=== PATIENT | female | born 1985 | race Caucasian/White ===

== ENCOUNTER 2016-07-22 16:44 | Inpatient (IN) | payer MEDICAID ==
[~2016-07-22] VITALS: Ht 160 cm; Wt 74.4 kg
[2016-07-22] MEDS ORDERED: FERR325C PO (16:49)
[2016-07-22] MEDS ORDERED: PREN1TAB17 PO (16:49)
[2016-07-22 16:53] VITALS: Ht 160 cm; Wt 74.4 kg
[2016-07-22 16:54] VITALS: BP 139/81; RESP 16
[2016-07-22] MEDS ORDERED: LACTATED RINGER'S 1,000 ML IV ONE (17:30)
[2016-07-22] MEDS ORDERED: TERBUTALINE 1 MG/ML INJ SC ONE (17:30)
--- NOTE | 2016-07-22 17:57 | RADRPT ---
PROCEDURE: Limited obstetric ultrasound CLINICAL INDICATION: LABOR TECHNIQUE: Multiple transverse and longitudinal grayscale images of the pelvis were obtained tucker sabdominally and endovaginally.. COMPARISON: same day FINDINGS: There is a single live intrauterine gestation in a vertex position with a heart rate of 126 bp m. The cervix is closed and measures 3.0 cm in length. The placenta is posterior fundal in location. There is no evidence of a placental abruption or plac enta previa. RPTAT: AA IMPRESSION: The cervix is closed and measures 3.0 cm in length. Physician Mag Date Time Electronically viewed and signed by Tanvir Garcia Physician on 07/22/2016 17:56 /
[2016-07-22] MEDS ORDERED: MAGNESIUM SULFATE 4 GM/100 ML 100 ML IV ONE (20:00)
[2016-07-22] MEDS: LACTATED RINGER'S 1,000 ML IV SCH (20:11)
[2016-07-22] MEDS: BETAMET NA PHOS/AC(6 MG/ML) 5ML INJ IM SCH (20:40)
[2016-07-22 20:52] LABS: ADD UMIC YES; URINE BILIRUBIN (Dip) NEGATIVE (NEGATIVE); URINE BLOOD (Dip) NEGATIVE (NEGATIVE); URINE COLOR LT. YELLOW (YELLOW); URINE GLUCOSE (Dip) NEGATIVE (NEGATIVE); URINE KETONES (Dip) NEGATIVE (NEGATIVE); URINE LEUKOCYTE ESTERASE (Dip) 2+ (NEGATIVE); URINE NITRITE (Dip) NEGATIVE (NEGATIVE); URINE TOTAL PROTEIN (Dip) NEGATIVE (NEGATIVE); URINE UROBILINOGEN (Dip) 0.2 E.U./dL (0.1-1.0)
[2016-07-22 21:09] LABS: URINE RBCS NONE SEEN /HPF (0)
[2016-07-22 21:10] LABS: BACTERIA,URINE MODERATE; SQUAMOUS EPITHELIAL CELL,UR MANY
[2016-07-22] MEDS: MAGNESIUM SULFATE 20 GM/500 ML 500 ML IV SCH (21:11)
[2016-07-22 21:35] LABS: ADD SCAN DIFF NO
[2016-07-22 21:36] LABS: BASOPHILS % 0.4 % (0.0-2.0); EOSINOPHILS # 0.1 10^3/ul (0.0-0.5); EOSINOPHILS % 0.7 % (0.0-7.0); HEMATOCRIT 32.4 % (37.0-47.0); HEMOGLOBIN 11.1 g/dl (12.0-16.0); LYMPHOCYTES # 1.6 10^3/ul (0.8-2.9); LYMPHOCYTES % 14.8 % (15.0-51.0); MEAN CORPUSCULAR HEMOGLOBIN 32.7 pg (29.0-33.0); MEAN CORPUSCULAR HGB CONC 34.3 g/dl (32.0-37.0); MEAN CORPUSCULAR VOLUME 95.6 fl (82.0-101.0); MEAN PLATELET VOLUME 10.4 fl (7.4-10.4); MONOCYTE # 0.5 10^3/ul (0.3-0.9); MONOCYTES % 4.7 % (0.0-11.0); NEUTROPHIL # 8.4 10^3/ul (1.6-7.5); NEUTROPHILS % 78.2 % (39.0-77.0); PLATELET COUNT 252 10^3/UL (140-415); RED BLOOD COUNT 3.39 10^6/ul (4.20-5.40); RED CELL DISTRIBUTION WIDTH 13.2 % (11.5-14.5); WHITE BLOOD COUNT 10.7 10^3/ul (4.8-10.8)
[2016-07-22 21:49] LABS: INR 0.93; PROTIME 12.5 Sec (12.2-14.2)
[2016-07-22 21:54] LABS: PARTIAL THROMBOPLASTIN TIME 25.7 Sec (25.0-35.0)
[2016-07-22 21:55] LABS: ALBUMIN 3.7 g/dl (3.3-4.9); ALBUMIN/GLOBULIN RATIO 1.32; BILIRUBIN,INDIRECT 0.1 mg/dl (0-1.1); BILIRUBIN,TOTAL 0.1 mg/dl (0.2-1.3); CALCIUM 8.2 mg/dl (8.4-10.2); CREATININE 0.61 mg/dl (0.44-1.00); POTASSIUM 3.5 mmol/L (3.5-5.1); TOTAL PROTEIN 6.5 g/dl (6.1-8.1); URIC ACID 4.9 mg/dl (3.1-7.9)
[2016-07-23] MEDS ORDERED: SYN15 PO (03:57)
[2016-07-23] MEDS ORDERED: [UNRECOGNIZED DRUG - OTHER] INH PRN (04:30)
[2016-07-23] MEDS: LACTATED RINGER'S 1,000 ML IV SCH ×3 (06:54→21:16)
[2016-07-23] MEDS: MAGNESIUM SULFATE 20 GM/500 ML 500 ML IV SCH ×2 (06:55→16:45)
[2016-07-23] MEDS: FERROUS SULFATE (EC) 325 MG TAB PO SCH (08:43)
[2016-07-23] MEDS: DOCUSATE SODIUM 100 MG CAP PO SCH (08:43)
[2016-07-23] MEDS: ACETAMINOPHEN 325 MG TAB PO PRN ×2 (11:41→16:42)
--- NOTE | 2016-07-23 13:11 | PERINOTE ---
Date/Time of Note Date/Time of Note DATE: 07/23/16 TIME: 13:00 Assessment/Recommendations Other Assessments 1. IUP at 34 weeks GA 2. Episode of elevated BP. "PIH labs" are negative (24 hour urine for protein is pending). 3. UCs with positive FFN. No UCs at present 4. History of thyroid cancer with past radioactive iodine use. This would not be expected to be a risk for the current . Recommendations: Would await 24 hour urine result and second dose of betamethasone. After these are completed, would discontinue magnesium and discharge patient Would follow TSH monthly, as thyroid replacement needs may change in Would consider ultrasound for EFW if not done in the past 4 weeks given the risk of IUGR with possible preeclampsia. OB Subjective Free Text/Dictaton Patient was referred to the hospital for an audible FHT deceleration in the office. On admission her BP was somewhat elevated and the FFN was positive, indicating an increased risk for delivery. She was admitted for magnesium and betamethasone. Past medical history: the patient has a history of thyroid cancer, treated with thyroidectomy. In 2010 she had a course of radioactive iodine. HD# 2 IUP @ 34 weeks Complaints/Overnight events Patient reports no symptoms, no further UCs. BPs are now in the normal range. Current Medications Current Medications Magnesium Sulfate (Magnesium Sulfate 20 Gm/500 ml) 500 ml @ 50 mls/hr Q10H IV Last administered on 07/23/16 06:55; Admin Dose 50 MLS/HR; Start 07/22/16 at 20: 30 Betamethasone Acet/Betameth SodPhos (Celestone Soluspan) 12 mg Q24H IM Last administered on 07/22/16 20:40; Admin Dose 12 MG; Start 07/22/16 at 20:00; Stop 07/23/16 at 20:01 Ferrous Sulfate (Ferrous Sulfate (Ec)) 325 mg DAILY PO Last administered on 07/23 08:43; Admin Dose 325 MG; Start 07/23/16 at 09:00 Docusate Sodium (Colace) 100 mg DAILY PO Last administered on 07/23/16 08:43; Admin Dose 100 MG; Start 07/23/16 at 09:00 Acetaminophen 650 mg 650 mg Q4H PRN PO PAIN AND OR ELEVATED TEMP Last administered on 07/23/16 11:41; Admin Dose 650 MG; Start 07/22/16 at 20:00 Lactated Ringer's (Lr) 1,000 ml @ 125 mls/hr Q8H IV Last administered on 06:54; Admin Dose 125 MLS/HR; Start 07/22/16 at 20:01 Patient Own Medication 1-2 PUFFS Q4-6HRS PRN INH SHORTNESS OF BREATH; Start 07/23 at 04:30 Past Medical History Medical History: hypothyroid, other (Asthma due to ingestion of gluten. Thyroid cancer) Surgical History: other (Thyroidectomy) Para: 0 : 1 LMP (Females 10-50): Family History Significant Family History: hypertension Social History Smoker: non-smoker Alcohol: none Drugs: none OB Admission Exam Physical Exam Vitals: Vital Signs Date Time Temp Pulse Resp B/P Pulse Ox O2 Delivery O2 Flow Rate FiO2 07/22/16 16:54 98.3 16 139/81 Room Air Heart: Rhythm Normal Lungs: Clear Abdomen: WNL Extremities: Normal Reflexes: Normal (Reflexes are brisk, with one beat of ankle clonus. This could be in the normal range.) Heart Rate: 120's (115bpm) Accelerations: Accelerations Present Decelerations: No Decelerations Varibility: Moderate Contractions on Admission: None Last 72 hours Lab Results CBC & BMP 07/22/16 21:28 Liver Function Test 07/22/16 21:28 Alanine Aminotransferase (ALT/SGPT) 37 Albumin 3.7 Alkaline Phosphatase 120 Aspartate Amino Transf (AST/SGOT) 26 Direct Bilirubin 0.00 Total Protein 6.5 Magnesium Level Test 07/23/16 06:13 Magnesium Level 5.9 *H OMARI RICHARD MD Jul 23, 2016 13:11
--- NOTE | 2016-07-23 14:16 | NSTRPT ---
NST Information Datetime Report Generated by CPN: 07/23/2016 14:16 Datetime: 07/22/2016 15:20 NST Information EGA: 33.6 Datetime: 07/22/2016 15:12 Test Number: 1 Time on Monitor: 07/22/2016 15:42 Time off Monitor: 07/22/2016 16:02 NST Duration (Min): 20 Reason for NST: Chronic Hypertension; labor; Other Reason for NST Other: Hypothyroidism Test and Monitor Explained: Monitor Explained; Test Explained; Verbalized Understanding Pulse: 89 Resp: 16 SBP: 124 DBP: 64 Test Evaluation NST Interventions: Reposition Patient (Annotations: Data stored by [facility] on behalf of user) Patient States Movement: Present Contraction Frequency: x4(4/10) FHR Baseline : 130 Variability: Moderate 6-25bpm Accelerations: 15X15 Decelerations: Late FHR Category: Category II NST Results: Questionable Comments: pt to u/s, SAUNDRA 12.8cm, cephalic BPP [address] Hathaway at 1602. Report given to Dr. Christy, New orders rece ived. Pt to OB-TRG. Explained to Pt plan of care. follow up NST appointment given. kick count instructions reviewed. pt states understanding. 1615- Pt to OB-TRG as ordered. (Annotations: Data stored by N on behalf of user) Electronically Signed By E-Signature: with User ID: [id number]
[2016-07-23] MEDS ORDERED: CEFAZOLIN 1 GM/50 ML (PMX) 50 ML IVPB SCH (20:00)
[2016-07-23] MEDS: BETAMET NA PHOS/AC(6 MG/ML) 5ML INJ IM SCH (20:19)
--- NOTE | 2016-07-23 21:00 | RADRPT ---
PROCEDURE: US OB biophysical profile. CLINICAL INDICATION: decreased movements, PTL TECHNIQUE: Multiple sonographic images of the pelvis were obtained. The images were reviewed on a PACS workstation. COMPARISON: 07/22/16 FINDINGS: There is a single viable intrauterine gestation. Cardiac activity is present with 120 beats per min [place]. There is a vertex presentation. The placenta is posterior. There is no evidence of placental abruption. There is a normal amount of amniotic fluid with an SAUNDRA = 10.6 cm. Biophysical profile: movement 2/2 tone 2/2. breathing 2/2 SAUNDRA 2/2 Total 09/28 RPTAT: AA . IMPRESSION: Normal biophysical profile. . .Frank Lucas MD, MD Date Time Electronically viewed and signed by .Frank Lucas MD, MD on 07/23/2016 21:00 .S/
--- NOTE | 2016-07-23 21:06 | RADRPT ---
PROCEDURE: US OB. CLINICAL INDICATION: Size and dates , labor TECHNIQUE: Multiple sonographic images of the pelvis and gravid uterus were obtained. The images were reviewed on a PACS workstation. COMPARISON: 07/22/16 FINDINGS: There is a single viable intrauterine gestation. Cardiac activity is present with 123 beats per min peggy. There is a vertex presentation. The placenta is posterior. There is no evidence for an abruption or placenta previa. There is a normal amount of amniotic fluid with an SAUNDRA = 10.6 cm. Measurements were made in order to determine age. The results are as follows: BPD =8.3 cm HC =30.2 cm AC =30.1 cm FL =6.2 cm Estimated gestational age of approximately 33 weeks and 2 days based on ultrasound measurements. Clinical age: 34 weeks and 0 days. The estimated date of delivery is 09/08/2016, based on ultrasound measurements. The EFW = 2187 g, 26%, based on LMP age. RPTAT: AA IMPRESSION: Single viable intrauterine gestation of approximately 33 weeks and 2 days based on ultrasound measu rements. .Frank Lucas MD, Date Time Electronically viewed and signed by .Frank Lucas MD, on 07/23/2016 21:05 .S/
[2016-07-23 22:27] LABS: SCRET 0.61 mg/dl (0.44-1.00)
[2016-07-24] MEDS: LACTATED RINGER'S 1,000 ML IV SCH ×2 (04:30→11:39)
[2016-07-24] MEDS ORDERED: NIFEdipine 10 MG CAP PO SCH (07:30)
[2016-07-24] MEDS: DOCUSATE SODIUM 100 MG CAP PO SCH (08:42)
[2016-07-24] MEDS: FERROUS SULFATE (EC) 325 MG TAB PO SCH (08:42)
--- NOTE | 2016-07-24 20:42 | HP ---
Date/Time of Note Date/Time of Note DATE: 07/24/16 TIME: 20:40 OB - History Hx of Present Free Text/Dictation 33+wks GA with CTXs and increased BP No Headache No blurry vision no epigastric pain Care: Good Care Ultrasounds: Normal mid trimester US Obstetrical Complications: None, Other Past Family/Social History * Past Medical, Surgical, Family and Obstetric Histories reviewed from chart. OB Admission Exam Vital Signs Vital Signs Vital Signs Date Time Temp Pulse Resp B/P Pulse Ox O2 Delivery O2 Flow Rate FiO2 07/22/16 16:54 98.3 16 139/81 Room Air Physical Exam Abdomen: WNL Extremities: Normal Reflexes: Normal Cervical Dilatation: None Effacement: 0% Membranes: Intact Heart Rate: 140's Accelerations: Accelerations Present Varibility: Moderate Contractions on Admission: >10 Minutes Apart Last 72 hours Lab Results CBC & BMP 07/22/16 21:28 Liver Function Test 07/22/16 21:28 Alanine Aminotransferase (ALT/SGPT) 37 Albumin 3.7 Alkaline Phosphatase 120 Aspartate Amino Transf (AST/SGOT) 26 Direct Bilirubin 0.00 Total Protein 6.5 Magnesium Level Test 07/23/16 06:13 07/23/16 12:15 07/23/16 18:05 Magnesium Level 5.9 *H 5.9 *H 6.4 *H OB Assessment/Plan Reason for admission: observation, labor Plan: Expectant Management Other plan: 1.Prenatalogy consult 2.Steroids 3.Mg 4.Antibiotics 5,24 hr urine for pr 6.u/C close observation JANIYA QUINTEROS M.D. Jul 24, 2016 20:42
--- NOTE | 2016-07-24 20:45 | QN ---
Documentation Comment Late entry 07/23/16 UP at 34 weeks GA Episode of elevated BP. NST reassuring [place] No CTXs --->f/u lab resultd ---->Ultrsound ----->Management as per Perinatalogy JANIYA QUINTEROS M.D. Jul 24, 2016 20:45
--- NOTE | 2016-07-24 20:48 | QN ---
Documentation Comment 34+wks GA Preeclampsia BP 120-140/70-90 No Headache No epigastric pain No blurry vision NST reassuring [place] No CtXs --->D/w ,patient will stay for few extra days for observation --->watch for severe preeclamps symptoms --->paitent;s questions answered JANIYA QUINTEROS M.D. Jul 24, 2016 20:48
[2016-07-24] MEDS: NITROFURANTOIN (SR) 100 MG CAP PO SCH (20:54)
[2016-07-25 06:04] LABS: ADD SCAN DIFF NO
[2016-07-25 06:12] LABS: BASOPHILS % 0.2 % (0.0-2.0); EOSINOPHILS % 0.3 % (0.0-7.0); HEMATOCRIT 34.4 % (37.0-47.0); HEMOGLOBIN 11.2 g/dl (12.0-16.0); LYMPHOCYTES # 1.9 10^3/ul (0.8-2.9); LYMPHOCYTES % 15.9 % (15.0-51.0); MEAN CORPUSCULAR HEMOGLOBIN 31.5 pg (29.0-33.0); MEAN CORPUSCULAR HGB CONC 32.6 g/dl (32.0-37.0); MEAN CORPUSCULAR VOLUME 96.9 fl (82.0-101.0); MEAN PLATELET VOLUME 10.7 fl (7.4-10.4); MONOCYTE # 0.8 10^3/ul (0.3-0.9); MONOCYTES % 6.5 % (0.0-11.0); NEUTROPHIL # 8.8 10^3/ul (1.6-7.5); NEUTROPHILS % 74.5 % (39.0-77.0); PLATELET COUNT 268 10^3/UL (140-415); RED BLOOD COUNT 3.55 10^6/ul (4.20-5.40); RED CELL DISTRIBUTION WIDTH 13.5 % (11.5-14.5); WHITE BLOOD COUNT 11.9 10^3/ul (4.8-10.8)
[2016-07-25 06:37] LABS: ALBUMIN 3.8 g/dl (3.3-4.9); ALBUMIN/GLOBULIN RATIO 1.26; BILIRUBIN,INDIRECT 0.1 mg/dl (0-1.1); BILIRUBIN,TOTAL 0.1 mg/dl (0.2-1.3); CREATININE 0.52 mg/dl (0.44-1.00); TOTAL PROTEIN 6.8 g/dl (6.1-8.1); URIC ACID 4.3 mg/dl (3.1-7.9)
[2016-07-25] MEDS: LACTATED RINGER'S 1,000 ML IV SCH ×2 (06:44→23:13)
[2016-07-25] MEDS: NITROFURANTOIN (SR) 100 MG CAP PO SCH ×2 (08:57→20:59)
[2016-07-25] MEDS: DOCUSATE SODIUM 100 MG CAP PO SCH (08:58)
[2016-07-25] MEDS: FERROUS SULFATE (EC) 325 MG TAB PO SCH (08:58)
[2016-07-25] MEDS: ACETAMINOPHEN 325 MG TAB PO PRN ×2 (09:02→19:31)
[2016-07-25] MEDS ORDERED: MAGNESIUM SULFATE 4 GM/100 ML 100 ML ONE (11:13)
--- NOTE | 2016-07-25 11:18 | QN ---
Documentation Comment 34+wks GA with preeclmpsia complains of On and Off sternum and epigastric pain No other associated symptoms BP 110-140/70-90 NS t reassrung [place] No CTXs Pelvic Deffered case D/w and She recommends 1.Mg 2.PIH Panel(LFT) 3.Observation Also EKG and cardiac enzymes are ordered JANIYA QUINTEROS M.D. Jul 25, 2016 11:18
[2016-07-25] MEDS ORDERED: MAGNESIUM SULFATE 20 GM/500 ML 500 ML IV SCH (11:30)
[2016-07-25] MEDS ORDERED: MAGNESIUM SULFATE 4 GM/100 ML 100 ML IVPB ONE ×2 (11:30→22:30)
[2016-07-25] MEDS ORDERED: AL HYDROX/MG HYDROX/SIMETH 30 ML CUP PO PRN (11:30)
[2016-07-25] MEDS: MULTIVIT/MIN/FOLATE/IRON/PREN TAB PO SCH (11:35)
[2016-07-25 12:27] LABS: ADD SCAN DIFF NO
[2016-07-25 12:38] LABS: BASOPHILS % 0.3 % (0.0-2.0); EOSINOPHILS % 0.3 % (0.0-7.0); HEMATOCRIT 35.6 % (37.0-47.0); HEMOGLOBIN 11.7 g/dl (12.0-16.0); LYMPHOCYTES % 16.9 % (15.0-51.0); MEAN CORPUSCULAR HEMOGLOBIN 31.9 pg (29.0-33.0); MEAN CORPUSCULAR HGB CONC 32.9 g/dl (32.0-37.0); MEAN PLATELET VOLUME 10.8 fl (7.4-10.4); MONOCYTE # 1.1 10^3/ul (0.3-0.9); NEUTROPHIL # 8.4 10^3/ul (1.6-7.5); NEUTROPHILS % 70.6 % (39.0-77.0); PLATELET COUNT 277 10^3/UL (140-415); RED BLOOD COUNT 3.67 10^6/ul (4.20-5.40); RED CELL DISTRIBUTION WIDTH 13.5 % (11.5-14.5); WHITE BLOOD COUNT 11.9 10^3/ul (4.8-10.8)
[2016-07-25 12:48] LABS: ALBUMIN 3.9 g/dl (3.3-4.9); ALBUMIN/GLOBULIN RATIO 1.3; BILIRUBIN,INDIRECT 0.2 mg/dl (0-1.1); BILIRUBIN,TOTAL 0.2 mg/dl (0.2-1.3); CALCIUM 8.8 mg/dl (8.4-10.2); CREATININE 0.53 mg/dl (0.44-1.00); POTASSIUM 3.9 mmol/L (3.5-5.1); TOTAL PROTEIN 6.9 g/dl (6.1-8.1)
--- NOTE | 2016-07-25 15:09 | QN ---
Documentation Comment patient's symptom (sternal and epigastic pain is improved)Labs reviewed BP WNL case D/w earlier and Mg will be discontinued JANIYA QUINTEROS M.D. Jul 25, 2016 15:09
--- NOTE | 2016-07-25 22:20 | QN ---
Documentation Comment Called by Nurse,The patient has headache that is not responding to tylenol.Also she is frequently more frequently, The case is discussed with ,BP WNL range The decision is to transfer the patient to L&D and start Mg .Patient will be seen tomorrow by and final decision in regards to delivery will be taken The Charged Nurse Tangela was informed. JANIYA QUINTEROS M.D. Jul 25, 2016 22:20
[2016-07-25] MEDS: MAGNESIUM SULFATE 20 GM/500 ML 500 ML IV SCH (23:05)
--- NOTE | 2016-07-25 23:46 | RADRPT ---
Vent Rate: 81 bpm RR Interval: 0 msec OR Interval: 144 msec QRS Duration: 76 msec QT Interval: 362 msec QTC Interval: 420 msec P-R-T [place]: 67 - 63 - 47 degrees Normal sinus rhythm Normal ECG Electronically Signed By: Joshau Tracy [id number]
[2016-07-26] MEDS ORDERED: HYDROCODONE/APAP (5/325) TAB PO STA (01:11)
[2016-07-26 06:33] LABS: ADD SCAN DIFF NO
[2016-07-26 06:37] LABS: BASOPHILS % 0.3 % (0.0-2.0); EOSINOPHILS # 0.1 10^3/ul (0.0-0.5); EOSINOPHILS % 0.8 % (0.0-7.0); HEMATOCRIT 36.1 % (37.0-47.0); LYMPHOCYTES # 1.8 10^3/ul (0.8-2.9); LYMPHOCYTES % 16.6 % (15.0-51.0); MEAN CORPUSCULAR HGB CONC 33.2 g/dl (32.0-37.0); MEAN CORPUSCULAR VOLUME 96.3 fl (82.0-101.0); MEAN PLATELET VOLUME 10.7 fl (7.4-10.4); MONOCYTE # 0.7 10^3/ul (0.3-0.9); MONOCYTES % 6.2 % (0.0-11.0); NEUTROPHIL # 7.9 10^3/ul (1.6-7.5); NEUTROPHILS % 72.3 % (39.0-77.0); PLATELET COUNT 300 10^3/UL (140-415); RED BLOOD COUNT 3.75 10^6/ul (4.20-5.40); RED CELL DISTRIBUTION WIDTH 13.7 % (11.5-14.5)
[2016-07-26 09:07] LABS: ALBUMIN 3.9 g/dl (3.3-4.9); ALBUMIN/GLOBULIN RATIO 1.25; BILIRUBIN,INDIRECT 0.1 mg/dl (0-1.1); BILIRUBIN,TOTAL 0.1 mg/dl (0.2-1.3); CALCIUM 7.4 mg/dl (8.4-10.2); CREATININE 0.51 mg/dl (0.44-1.00); POTASSIUM 3.9 mmol/L (3.5-5.1); URIC ACID 4.8 mg/dl (3.1-7.9)
[2016-07-26 09:16] LABS: INR 0.91; PROTIME 12.2 Sec (12.2-14.2)
[2016-07-26 09:17] LABS: PARTIAL THROMBOPLASTIN TIME 25.2 Sec (25.0-35.0)
[2016-07-26] MEDS: MULTIVIT/MIN/FOLATE/IRON/PREN TAB PO SCH (09:17)
[2016-07-26] MEDS: FERROUS SULFATE (EC) 325 MG TAB PO SCH (09:17)
[2016-07-26] MEDS: MAGNESIUM SULFATE 20 GM/500 ML 500 ML IV SCH (09:19)
[2016-07-26] MEDS: DOCUSATE SODIUM 100 MG CAP PO SCH (09:24)
[2016-07-26] MEDS: NITROFURANTOIN (SR) 100 MG CAP PO SCH ×2 (09:31→21:06)
[2016-07-26] MEDS: LACTATED RINGER'S 1,000 ML IV SCH (11:49)
[2016-07-26 13:04] LABS: FIBRIN SPLIT PRODUCT <10 ug/ml (<10)
--- NOTE | 2016-07-26 21:59 | QN ---
Documentation Comment 34+wks GA with preeclmpsia asymtomatic BP 110-140/70-90 NS t reassrung [place] No CTXs Pelvic Deffered case D/w She recommends 1.daily PIH panel 2.Observation JANIYA QUINTEROS M.D. Jul 26, 2016 21:59
--- NOTE | 2016-07-26 22:01 | HP ---
Date/Time of Note Date/Time of Note DATE: 07/26/16 TIME: 21:59 OB - History Hx of Present Free Text/Dictation @37+wks GA with previous c/secion in labor : 4 Para: 3 Care: Good Care Ultrasounds: Normal mid trimester US Obstetrical Complications: None Medical Complications: None Past Family/Social History * Past Medical, Surgical, Family and Obstetric Histories reviewed from chart. OB Admission Exam Vital Signs Vital Signs Vital Signs Date Time Temp Pulse Resp B/P Pulse Ox O2 Delivery O2 Flow Rate FiO2 07/22/16 16:54 98.3 16 139/81 Room Air Physical Exam Abdomen: WNL Extremities: Normal Cervical Dilatation: 2cm Effacement: 75% Station: -1 Membranes: Intact Heart Rate: 140's Accelerations: Accelerations Present Decelerations: No Decelerations Varibility: Moderate Contractions on Admission: < 5 Minutes Apart Last 72 hours Lab Results CBC & BMP 07/25/16 05:55 07/25/16 12:05 07/26/16 05:50 07/26/16 07:50 Liver Function Test 07/25/16 05:55 07/25/16 12:05 07/26/16 07:50 Alanine Aminotransferase (ALT/SGPT) 36 37 42 Albumin 3.8 3.9 3.9 Alkaline Phosphatase 104 113 129 H Aspartate Amino Transf (AST/SGOT) 25 24 25 Direct Bilirubin 0.00 0.00 0.00 Total Protein 6.8 6.9 7.0 Magnesium Level Test 07/26/16 05:50 Magnesium Level 5.8 *H OB Assessment/Plan Reason for admission: section Plan: Section JANIYA QUINTEROS M.D. Jul 26, 2016 22:01
--- NOTE | 2016-07-27 08:31 | QN ---
Documentation Comment 34+wks GA with preeclmpsia asymtomatic BP 110-130/70-90 NS t reassrung [place] No CTXs Pelvic Deffered 1.daily PIH panel 2.Observation JANIYA QUINTEROS M.D. Jul 27, 2016 08:31
[2016-07-27] MEDS: DOCUSATE SODIUM 100 MG CAP PO SCH (09:11)
[2016-07-27] MEDS: NITROFURANTOIN (SR) 100 MG CAP PO SCH ×2 (09:11→20:56)
[2016-07-27] MEDS: FERROUS SULFATE (EC) 325 MG TAB PO SCH (09:11)
[2016-07-27] MEDS: MULTIVIT/MIN/FOLATE/IRON/PREN TAB PO SCH (09:12)
[2016-07-27 09:43] LABS: ADD SCAN DIFF NO
[2016-07-27 09:46] LABS: BASOPHIL # 0.1 10^3/ul (0.0-0.1); BASOPHILS % 0.5 % (0.0-2.0); EOSINOPHILS # 0.1 10^3/ul (0.0-0.5); EOSINOPHILS % 1.5 % (0.0-7.0); HEMATOCRIT 35.9 % (37.0-47.0); HEMOGLOBIN 12.3 g/dl (12.0-16.0); LYMPHOCYTES # 1.6 10^3/ul (0.8-2.9); MEAN CORPUSCULAR HEMOGLOBIN 32.7 pg (29.0-33.0); MEAN CORPUSCULAR HGB CONC 34.3 g/dl (32.0-37.0); MEAN CORPUSCULAR VOLUME 95.5 fl (82.0-101.0); MEAN PLATELET VOLUME 10.7 fl (7.4-10.4); MONOCYTE # 0.3 10^3/ul (0.3-0.9); MONOCYTES % 2.7 % (0.0-11.0); NEUTROPHIL # 7.2 10^3/ul (1.6-7.5); NEUTROPHILS % 75.3 % (39.0-77.0); PLATELET COUNT 298 10^3/UL (140-415); RED BLOOD COUNT 3.76 10^6/ul (4.20-5.40); RED CELL DISTRIBUTION WIDTH 13.4 % (11.5-14.5); WHITE BLOOD COUNT 9.6 10^3/ul (4.8-10.8)
[2016-07-27 10:10] LABS: INR 0.94; PROTIME 12.6 Sec (12.2-14.2)
[2016-07-27 10:11] LABS: PARTIAL THROMBOPLASTIN TIME 25.6 Sec (25.0-35.0)
[2016-07-27 10:16] LABS: ALBUMIN/GLOBULIN RATIO 1.21; BILIRUBIN,INDIRECT 0.3 mg/dl (0-1.1); BILIRUBIN,TOTAL 0.3 mg/dl (0.2-1.3); CALCIUM 9.1 mg/dl (8.4-10.2); CREATININE 0.52 mg/dl (0.44-1.00); POTASSIUM 4.4 mmol/L (3.5-5.1); TOTAL PROTEIN 7.3 g/dl (6.1-8.1)
[2016-07-27 11:05] LABS: FIBRIN SPLIT PRODUCT <10 ug/ml (<10)
[2016-07-27] MEDS: ACETAMINOPHEN 325 MG TAB PO PRN ×2 (18:36→22:41)
[2016-07-28] MEDS: LEVOTHYROXINE 150 MCG TAB PO SCH (05:55)
[2016-07-28 07:29] LABS: ADD SCAN DIFF NO
[2016-07-28 07:37] LABS: BASOPHILS % 0.3 % (0.0-2.0); EOSINOPHILS # 0.2 10^3/ul (0.0-0.5); EOSINOPHILS % 1.6 % (0.0-7.0); HEMATOCRIT 36.7 % (37.0-47.0); HEMOGLOBIN 12.3 g/dl (12.0-16.0); LYMPHOCYTES # 1.8 10^3/ul (0.8-2.9); LYMPHOCYTES % 18.1 % (15.0-51.0); MEAN CORPUSCULAR HEMOGLOBIN 32.1 pg (29.0-33.0); MEAN CORPUSCULAR HGB CONC 33.5 g/dl (32.0-37.0); MEAN CORPUSCULAR VOLUME 95.8 fl (82.0-101.0); MEAN PLATELET VOLUME 10.8 fl (7.4-10.4); MONOCYTE # 0.4 10^3/ul (0.3-0.9); MONOCYTES % 4.5 % (0.0-11.0); NEUTROPHILS % 72.2 % (39.0-77.0); PLATELET COUNT 301 10^3/UL (140-415); RED BLOOD COUNT 3.83 10^6/ul (4.20-5.40); RED CELL DISTRIBUTION WIDTH 13.7 % (11.5-14.5); WHITE BLOOD COUNT 9.8 10^3/ul (4.8-10.8)
[2016-07-28 07:58] LABS: ALBUMIN 4.1 g/dl (3.3-4.9); ALBUMIN/GLOBULIN RATIO 1.24; BILIRUBIN,INDIRECT 0.2 mg/dl (0-1.1); BILIRUBIN,TOTAL 0.2 mg/dl (0.2-1.3); CALCIUM 9.6 mg/dl (8.4-10.2); CREATININE 0.53 mg/dl (0.44-1.00); TOTAL PROTEIN 7.4 g/dl (6.1-8.1)
[2016-07-28] MEDS: DOCUSATE SODIUM 100 MG CAP PO SCH (09:31)
[2016-07-28] MEDS: FERROUS SULFATE (EC) 325 MG TAB PO SCH (09:31)
[2016-07-28] MEDS: MULTIVIT/MIN/FOLATE/IRON/PREN TAB PO SCH (09:31)
[2016-07-28] MEDS: NITROFURANTOIN (SR) 100 MG CAP PO SCH ×2 (09:31→21:05)
--- NOTE | 2016-07-28 23:57 | QN ---
Documentation Comment 34+wks GA with preeclmpsia asymtomatic BP 110-130/70-90 NS t reassrung [place] No CTXs Pelvic Deffered 1.daily PIH panel 2.Observation 3.Repeat 24 hr urine JANIYA QUINTEROS M.D. Jul 28, 2016 23:57
[2016-07-29] MEDS: LEVOTHYROXINE 150 MCG TAB PO SCH (06:10)
[2016-07-29 07:46] LABS: ADD SCAN DIFF NO
[2016-07-29 07:54] LABS: BASOPHILS % 0.4 % (0.0-2.0); EOSINOPHILS # 0.2 10^3/ul (0.0-0.5); EOSINOPHILS % 1.4 % (0.0-7.0); HEMOGLOBIN 11.5 g/dl (12.0-16.0); LYMPHOCYTES # 1.7 10^3/ul (0.8-2.9); LYMPHOCYTES % 16.2 % (15.0-51.0); MEAN CORPUSCULAR HGB CONC 32.9 g/dl (32.0-37.0); MEAN CORPUSCULAR VOLUME 97.5 fl (82.0-101.0); MEAN PLATELET VOLUME 10.9 fl (7.4-10.4); MONOCYTE # 0.5 10^3/ul (0.3-0.9); MONOCYTES % 4.4 % (0.0-11.0); NEUTROPHIL # 7.7 10^3/ul (1.6-7.5); NEUTROPHILS % 74.2 % (39.0-77.0); PLATELET COUNT 286 10^3/UL (140-415); RED BLOOD COUNT 3.59 10^6/ul (4.20-5.40); RED CELL DISTRIBUTION WIDTH 13.6 % (11.5-14.5); WHITE BLOOD COUNT 10.4 10^3/ul (4.8-10.8)
[2016-07-29 08:25] LABS: ALBUMIN 3.8 g/dl (3.3-4.9); ALBUMIN/GLOBULIN RATIO 1.18; BILIRUBIN,INDIRECT 0.1 mg/dl (0-1.1); BILIRUBIN,TOTAL 0.1 mg/dl (0.2-1.3); CALCIUM 9.2 mg/dl (8.4-10.2); CREATININE 0.51 mg/dl (0.44-1.00); POTASSIUM 3.7 mmol/L (3.5-5.1)
[2016-07-29] MEDS: FERROUS SULFATE (EC) 325 MG TAB PO SCH (08:59)
[2016-07-29] MEDS: DOCUSATE SODIUM 100 MG CAP PO SCH (08:59)
[2016-07-29] MEDS: MULTIVIT/MIN/FOLATE/IRON/PREN TAB PO SCH (09:00)
[2016-07-29] MEDS: NITROFURANTOIN (SR) 100 MG CAP PO SCH ×2 (09:00→21:26)
[2016-07-29 14:13] LABS: SCRET 0.51 mg/dl (0.44-1.00)
[2016-07-29] MEDS: ACETAMINOPHEN 325 MG TAB PO PRN ×2 (18:11→22:29)
--- NOTE | 2016-07-29 18:46 | PN ---
Date/Time of Note Date/Time of Note DATE: 07/29/16 TIME: 18:41 OB Subjective Subjective Subjective July 29, 2016 Hospital consult This patient is 31 years old 1 para 0 with estimated date of confinement of September 03, 2016 which makes her 34 weeks and 6 days now she was referred to the hospital due to elevated blood pressure and what described as decelerations of the heart rate. This patient recently moved from [facility] [place] she gives a history of thyroid cancer which was operated and the lymphadenectomy was performed Upon admission her contractions were controlled with mag sulfate. betamethasone was given as well as pain medication for headache Her 24 hours urine protein was 903 yesterday however today her 24 hour urine protein came back 207 Laboratory Tests Test 07/29/16 06:56 07/29/16 12:45 White Blood Count 10.410^3/ul Red Blood Count 3.5910^6/ul Hemoglobin 11.5g/dl Hematocrit 35.0% Mean Corpuscular Volume 97.5fl Mean Corpuscular Hemoglobin 32.0pg Mean Corpuscular Hemoglobin Concent 32.9g/dl Red Cell Distribution Width 13.6% Platelet Count 60454^3/UL Mean Platelet Volume 10.9fl Neutrophils % 74.2% Lymphocytes % 16.2% Monocytes % 4.4% Eosinophils % 1.4% Basophils % 0.4% Nucleated Red Blood Cells % 0.0/100WBC Neutrophils # 7.710^3/ul Lymphocytes # 1.710^3/ul Monocytes # 0.510^3/ul Eosinophils # 0.210^3/ul Basophils # 0.010^3/ul Nucleated Red Blood Cells # 0.010^3/ul Sodium Level 139mmol/L Potassium Level 3.7mmol/L Chloride Level 110mmol/L Carbon Dioxide Level 19mmol/L Anion Gap 14 Blood Urea Nitrogen 11mg/dl Creatinine 0.51mg/dl Glucose Level 84mg/dl Uric Acid 4.5mg/dl Calcium Level 9.2mg/dl Total Bilirubin 0.1mg/dl Direct Bilirubin 0.00mg/dl Indirect Bilirubin 0.1mg/dl Aspartate Amino Transf (AST/SGOT) 18IU/L Alanine Aminotransferase (ALT/SGPT) 27IU/L Alkaline Phosphatase 118IU/L Total Protein 7.0g/dl Albumin 3.8g/dl Globulin 3.20g/dl Albumin/Globulin Ratio 1.18 Urine Random Creatinine 42.65mg/dl Urine Collection Duration 24hrs Urine Total Volume 24 Hours 2300ml/24hrs Urine Creatinine Timed 24hrs Creatinine Clearance 133.6mls/min Urine Total Volume (Protein) 2300mls Urine Total Protein 24 Hour 207.0mg/24hrs Current Medications Medications (Trade) Dose Ordered Sig/Melissa Route PRN Reason Start Time Stop Time Status Last Admin Dose Admin Terbutaline Sulfate 0.25 mg 0.25 mg ONCE ONCE SC 07/22/16 17:30 07/22/16 17:31 DC 07/22/16 17:54 Lactated Ringer's 1,000 ml @ 1,000 mls/hr Q1H ONCE IV 07/22/16 17:30 07/22/16 18:29 DC 07/22/16 17:54 Magnesium Sulfate 100 ml @ 200 mls/hr ONCE ONCE IV 07/22/16 20:00 07/22/16 20:29 DC 07/22/16 20:35 Magnesium Sulfate (Magnesium Sulfate 20 Gm/500 ml) 500 ml @ 50 mls/hr Q10H IV 07/22/16 20:30 07/23/16 19:37 DC 07/23/16 16:45 Betamethasone Acet/Betameth SodPhos (Celestone Soluspan) 12 mg Q24H IM 07/22/16 20:00 07/23/16 20:01 DC 07/23/16 20:19 Ferrous Sulfate (Ferrous Sulfate (Ec)) 325 mg DAILY PO 07/23/16 09:00 07/29/16 08:59 Docusate Sodium (Colace) 100 mg DAILY PO 07/23/16 09:00 07/29/16 08:59 Acetaminophen 650 mg 650 mg Q4H PRN PO PAIN AND OR ELEVATED TEMP 07/22/16 20:00 07/29/16 18:11 Lactated Ringer's (Lr) 1,000 ml @ 50 mls/hr Q20H IV 07/22/16 20:01 Future Hold 07/26/16 11:49 Patient Own Medication 1-2 PUFFS Q4-6HRS PRN INH SHORTNESS OF BREATH 07/23/16 04:30 Cefazolin Sodium (Ancef 1 Gm/50 ml (Pmx)) 50 ml @ 100 mls/hr ONCE IVPB 07/23/16 20:00 07/23/16 20:29 DC 07/23/16 20:19 Nifedipine (Procardia) 10 mg Q6 PO 07/24/16 07:30 07/24/16 11:28 DC 07/24/16 07:43 Nitrofurantoin Macrocrystals (Macrobid) 100 mg BID PO 07/24/16 21:00 07/29/16 09:00 Prenat Multivit/ Commissioned Police Officer/Iron/Folic Ac ( S) 1 tab DAILY PO 07/25/16 09:00 07/29/16 09:00 Al Hydrox/Mg Hydrox/ Simethicone 30 ml 30 ml Q4H PRN PO GASTROINTESTINAL UPSET 07/25/16 11:30 07/25/16 11:15 Magnesium Sulfate 500 ml @ 50 mls/hr Q10H IV 07/25/16 11:30 07/25/16 14:53 DC 07/25/16 11:51 Magnesium Sulfate 100 ml @ 200 mls/hr ONCE ONCE IVPB 07/25/16 11:30 07/25/16 11:59 DC 07/25/16 11:30 Magnesium Sulfate 100 ml @ ud STK-MED ONCE .ROUTE 07/25/16 11:13 07/25/16 11:14 DC Magnesium Sulfate 100 ml @ 200 mls/hr ONCE ONCE IVPB 07/25/16 22:30 07/25/16 22:59 DC 07/25/16 22:37 Magnesium Sulfate (Magnesium Sulfate 20 Gm/500 ml) 500 ml @ 50 mls/hr Q10H IV 07/25/16 23:00 07/26/16 12:27 DC 07/26/16 09:19 Acetaminophen/ Hydrocodone Bitart ([place] (5/325)) 1 tab ONCE STAT PO 07/26/16 01:11 07/26/16 01:16 DC 07/26/16 01:37 IV Flush (NS 10 ml) 10 ml Q8 IV 07/26/16 14:00 07/29/16 14:02 Levothyroxine Sodium (Synthroid) 150 mcg DAILY@06 PO 07/28/16 06:00 07/29/16 06:10 On examination her abdomen is soft she has no contraction Her eyes nose and neck appears to be normal .Has a scar from the previous surgery on her neck.. Chest is clear to auscultation and precaution no rales heart normal sinus rhythm no murmur breasts are soft free of masses nipples are normal abdomen is soft no contraction actually very rare contraction heart tone is normal and thr tracing shows fairly good variability and no deceleration. No ankle edema Knee-jerk reflex are normal Plan would be to keep her today and tomorrow if she is doing well she might be discharged home to be followed in the clinic INA HARRISON MD Jul 29, 2016 18:46
[2016-07-30] MEDS: LEVOTHYROXINE 150 MCG TAB PO SCH (05:44)
[2016-07-30 06:53] LABS: ADD SCAN DIFF NO
[2016-07-30 07:01] LABS: BASOPHILS % 0.3 % (0.0-2.0); EOSINOPHILS # 0.2 10^3/ul (0.0-0.5); EOSINOPHILS % 1.7 % (0.0-7.0); HEMATOCRIT 34.7 % (37.0-47.0); HEMOGLOBIN 11.5 g/dl (12.0-16.0); LYMPHOCYTES # 1.8 10^3/ul (0.8-2.9); LYMPHOCYTES % 16.5 % (15.0-51.0); MEAN CORPUSCULAR HGB CONC 33.1 g/dl (32.0-37.0); MEAN CORPUSCULAR VOLUME 96.7 fl (82.0-101.0); MEAN PLATELET VOLUME 10.6 fl (7.4-10.4); MONOCYTE # 0.6 10^3/ul (0.3-0.9); MONOCYTES % 5.9 % (0.0-11.0); NEUTROPHIL # 7.9 10^3/ul (1.6-7.5); NEUTROPHILS % 72.5 % (39.0-77.0); PLATELET COUNT 282 10^3/UL (140-415); RED BLOOD COUNT 3.59 10^6/ul (4.20-5.40); RED CELL DISTRIBUTION WIDTH 13.6 % (11.5-14.5); WHITE BLOOD COUNT 10.9 10^3/ul (4.8-10.8)
[2016-07-30 07:18] LABS: ALBUMIN 3.8 g/dl (3.3-4.9); ALBUMIN/GLOBULIN RATIO 1.22; CALCIUM 9.4 mg/dl (8.4-10.2); CREATININE 0.51 mg/dl (0.44-1.00); POTASSIUM 3.8 mmol/L (3.5-5.1); TOTAL PROTEIN 6.9 g/dl (6.1-8.1)
--- NOTE | 2016-07-30 07:45 | RADRPT ---
PROCEDURE: US OB biophysical profile. CLINICAL INDICATION: evaluation TECHNIQUE: Multiple sonographic images of the pelvis were obtained. The images were reviewed on a PACS workstation. COMPARISON: Obstetrical ultrasound from 07/23/2016 FINDINGS: There is a single viable intrauterine gestation. Cardiac activity is present with 134 beats per min [place]. There is a vertex presentation. The placenta is posterior. There is no evidence of placental abruption. There is a normal amount of amniotic fluid with an SAUNDRA = 10.2 cm. Biophysical profile: movement 2/2 tone 2/2. breathing 2/2 SAUNDRA 2/2 Total 09/28 RPTAT: AA . IMPRESSION: Normal biophysical profile. Physician Mag Date Time Electronically viewed and signed by Physician Mag on 07/30/2016 07:44 /
[2016-07-30] MEDS: NITROFURANTOIN (SR) 100 MG CAP PO SCH (09:08)
[2016-07-30] MEDS: FERROUS SULFATE (EC) 325 MG TAB PO SCH (09:08)
[2016-07-30] MEDS: DOCUSATE SODIUM 100 MG CAP PO SCH (09:08)
[2016-07-30] MEDS: MULTIVIT/MIN/FOLATE/IRON/PREN TAB PO SCH (09:08)
[2016-07-30] MEDS: ACETAMINOPHEN 325 MG TAB PO PRN (09:12)
--- NOTE | 2016-07-30 11:38 | QN ---
Documentation Comment 34+wks GA with preeclmpsia asymtomatic Recent 24 hr urine is WNL BP 110-1200/70-90 NS t reassrung [place] No CTXs Pelvic Deffered 1.daily PIH panel 2.Observation 3.Prenatalogy consult in regards to discharge JANIYA QUINTEROS M.D. Jul 30, 2016 11:38
--- NOTE | 2016-07-30 15:50 | QN ---
Documentation Comment case D/w , Patient wll be discharged and will return u=in 2 dats for NST BPP and PRISCA monitor JANIYA QUINTEROS M.D. Jul 30, 2016 15:50
--- NOTE | 2016-07-30 15:51 | PERINOTE ---
Date/Time of Note Date/Time of Note DATE: 07/30/16 TIME: 15:47 Assessment/Recommendations Other Assessments labor, resolved Preeclampsia, without severe features Recommendations: I would agree with discharging this patient with twice weekly NST/weekly SAUNDRA. If patient and fetus remain stable, would deliver at 37-38 weeks GA. OB Subjective Free Text/Dictaton Patient with history of labor, now without complaints. Also with a history of elevated BPs, diagnosed with preeclampsia without severe features. HD# 9 IUP @ 35 weeks Current Medications Current Medications Ferrous Sulfate (Ferrous Sulfate (Ec)) 325 mg DAILY PO Last administered on 07/30 09:08; Admin Dose 325 MG; Start 07/23/16 at 09:00 Docusate Sodium (Colace) 100 mg DAILY PO Last administered on 07/30/16 09:08; Admin Dose 100 MG; Start 07/23/16 at 09:00 Acetaminophen 650 mg 650 mg Q4H PRN PO PAIN AND OR ELEVATED TEMP Last administered on 07/30/16 09:12; Admin Dose 650 MG; Start 07/22/16 at 20:00 Lactated Ringer's (Lr) 1,000 ml @ 50 mls/hr Q20H IV Last administered on 11:49; Admin Dose 50 MLS/HR; Start 07/22/16 at 20:01; Status Future Hold Patient Own Medication 1-2 PUFFS Q4-6HRS PRN INH SHORTNESS OF BREATH; Start 07/23 at 04:30 Nitrofurantoin Macrocrystals (Macrobid) 100 mg BID PO Last administered on 09:08; Admin Dose 100 MG; Start 07/24/16 at 21:00 Prenat Multivit/ [place]/Iron/Folic Ac ( S) 1 tab DAILY PO Last administered on 07/30/16 09:08; Admin Dose 1 TAB; Start 07/25/16 at 09:00 Al Hydrox/Mg Hydrox/Simethicone (Mag-Al Plus) 30 ml Q4H PRN PO GASTROINTESTINAL UPSET Last administered on 07/25/16 11:15; Admin Dose 30 ML; Start 07/25/16 at 11:30 IV Flush (NS 10 ml) 10 ml Q8 IV Last administered on 6/8/17at 21:27; Admin Dose 10 ML; Start 07/26/16 at 14:00 Levothyroxine Sodium (Synthroid) 150 mcg DAILY@06 PO Last administered on t 05:44; Admin Dose 150 MCG; Start 07/28/16 at 06:00 OB Admission Exam Physical Exam Vitals: BP 139/91. Maximum BP last 24 hrs 142/93 Abdomen: WNL Heart Rate: 130's Accelerations: Accelerations Present Decelerations: No Decelerations Varibility: Moderate Contractions on Admission: None Last 72 hours Lab Results CBC & BMP 07/28/16 05:28 07/29/16 06:56 07/30/16 05:58 Liver Function Test 07/28/16 05:28 07/29/16 06:56 07/30/16 05:58 Alanine Aminotransferase (ALT/SGPT) 35 27 28 Albumin 4.1 3.8 3.8 Alkaline Phosphatase 124 H 118 121 Aspartate Amino Transf (AST/SGOT) 20 18 19 Direct Bilirubin 0.00 0.00 0.00 Total Protein 7.4 7.0 6.9 Copies To: CC: JANIYA QUINTEROS M.D., MARIE H MD Jul 30, 2016 15:51
== END 2016-07-30 18:05 | disposition home or self-care (01) | DRG 781 ==
LOC: OBT 16:44 → L-D 16:44 → OBT 19:34 → L-D 19:34 → OBG 20:35 → L-D 07-25 23:51 → OBG 07-26 11:58
PROVIDERS: ADMIT Obstetrics & Gynecology; ATTEND Obstetrics & Gynecology
DX: O14.93 Unspecified pre-eclampsia, third trimester (principal); Z3A.34 34 weeks gestation of pregnancy
CPT/HCPCS: 76815; 76817; 76818; 80053; 81001; 82575; 82731; 83615; 83735; 84156; 84443; 84484; 84560; 85025; 85362; 85384; 85610; 85730; 93005; 96360; 96361; 96372; G0463; J0690; J0702; J3105; J3475; J7120

== ENCOUNTER 2016-08-16 18:09 | Inpatient (IN) | payer MEDICAID ==
[2016-08-16] MEDS ORDERED: LIDOCAINE 1% (MPF) 30 ML INJ INJ PRN (19:00)
[2016-08-16] MEDS ORDERED: MISOPROSTOL 200 MCG TAB PR PRN (19:00)
[2016-08-16] MEDS ORDERED: METHYLERGONOVINE 0.2 MG INJ IM PRN (19:00)
[2016-08-16] MEDS ORDERED: LACTATED RINGER'S 1,000 ML IV PRN (19:00)
[2016-08-16] MEDS ORDERED: OXYTOCIN 30 UNITS/LR 500 ML IV PRN (19:00)
[2016-08-16] MEDS ORDERED: BUTORPHANOL 2 MG INJ IV PRN ×2 (19:00)
[2016-08-16] MEDS ORDERED: CARBOPROST 250 MCG INJ IM PRN (19:00)
[2016-08-16 19:52] LABS: ADD SCAN DIFF NO
[2016-08-16 19:54] LABS: BASOPHILS % 0.2 % (0.0-2.0); EOSINOPHILS # 0.1 10^3/ul (0.0-0.5); EOSINOPHILS % 1.2 % (0.0-7.0); HEMATOCRIT 35.8 % (37.0-47.0); HEMOGLOBIN 12.3 g/dl (12.0-16.0); LYMPHOCYTES # 1.5 10^3/ul (0.8-2.9); LYMPHOCYTES % 16.1 % (15.0-51.0); MEAN CORPUSCULAR HEMOGLOBIN 32.5 pg (29.0-33.0); MEAN CORPUSCULAR HGB CONC 34.4 g/dl (32.0-37.0); MEAN CORPUSCULAR VOLUME 94.7 fl (82.0-101.0); MEAN PLATELET VOLUME 10.5 fl (7.4-10.4); MONOCYTE # 0.5 10^3/ul (0.3-0.9); NEUTROPHIL # 6.9 10^3/ul (1.6-7.5); NEUTROPHILS % 76.6 % (39.0-77.0); PLATELET COUNT 295 10^3/UL (140-415); RED BLOOD COUNT 3.78 10^6/ul (4.20-5.40); RED CELL DISTRIBUTION WIDTH 13.8 % (11.5-14.5)
--- NOTE | 2016-08-16 20:01 | RADRPT ---
PROCEDURE: US OB. CLINICAL INDICATION: Induction. Estimated weight. TECHNIQUE: Multiple sonographic images of the pelvis were obtained. The images were reviewed on a PACS workstation. COMPARISON: No prior studies are available for comparison. FINDINGS: Cervical length is not evaluated. There is a single viable intrauterine gestation. Cardiac activity is present with 139 beats per min [place]. There is a cephalic presentation. Measurements were made in order to determine age. The results are as follows: BPD =8.99: 36 weeks 3 days plus or minus 3 weeks 1 day. HC =31.5 cm: 35 weeks 2 days plus or minus 3 weeks air days. AC =32.6 cm: 36 weeks 3 days plus or minus 3 weeks air days. FL =6.99 cm: 35 weeks 6 days plus or minus 3 weeks air days.. Estimated gestational age of approximately 36 weeks 0 days plus or minus 2 weeks 4 days. The estimated date of delivery is 09/13/2016. The EFW = 2870 g plus or minus 431 g . anatomy is not evaluated. The placenta is grade 2 posterior. There is no evidence for an abruption or placenta previa. SAUNDRA = 12.1 cm. There are no adnexal masses.. IMPRESSION: Single viable intrauterine gestation of approximately . The estimated date of delivery is . Physician Jose Date Time Electronically viewed and signed by Physician Jose on 08/16/2016 20:01 LALA/
[2016-08-16] MEDS: LACTATED RINGER'S 1,000 ML IV SCH (20:24)
[2016-08-16 20:59] LABS: INR 0.91; PROTIME 12.2 Sec (12.2-14.2)
[2016-08-16 21:02] LABS: PARTIAL THROMBOPLASTIN TIME 25.3 Sec (25.0-35.0)
[2016-08-16] MEDS ORDERED: AMPICILLIN 2 GM/NS (PMX) 100 ML IVPB ONE (21:30)
[2016-08-16 23:05] LABS: ALBUMIN/GLOBULIN RATIO 1.14; BILIRUBIN,INDIRECT 0.2 mg/dl (0-1.1); BILIRUBIN,TOTAL 0.2 mg/dl (0.2-1.3); CALCIUM 9.5 mg/dl (8.4-10.2); CREATININE 0.79 mg/dl (0.44-1.00); POTASSIUM 3.8 mmol/L (3.5-5.1); TOTAL PROTEIN 7.5 g/dl (6.1-8.1); URIC ACID 5.2 mg/dl (3.1-7.9)
[2016-08-17] MEDS: AMPICILLIN 1 GM/NS (PMX) 50 ML IVPB SCH ×4 (02:31→13:00)
[2016-08-17] MEDS: OXYTOCIN 30 UNITS/LR 500 ML IV SCH ×4 (02:52→21:30)
[2016-08-17] MEDS: LACTATED RINGER'S 1,000 ML IV SCH ×3 (04:52→18:45)
[2016-08-17] MEDS ORDERED: FENTAnyl 2MCG/ML-ROPIV 0.2% 100 ML ONE (07:44)
[2016-08-17] MEDS ORDERED: FENTAnyl 50 MCG/ML VIAL IV PRN (08:30)
[2016-08-17] MEDS ORDERED: METOCLOPRAMIDE 10 MG INJ IV PRN (08:30)
[2016-08-17] MEDS ORDERED: HYDROmorphONE (0.2 MG/ML) 10ML SYG IV PRN ×3 (08:30)
[2016-08-17] MEDS ORDERED: DIPHENHYDRAMINE 50 MG INJ IV PRN ×2 (08:30)
[2016-08-17] MEDS ORDERED: KETOROLAC 30 MG INJ IV ONE (08:30)
[2016-08-17] MEDS ORDERED: NALOXONE (0.4 MG/ML) INJ IV PRN (08:30)
[2016-08-17] MEDS ORDERED: ONDANSETRON 4 MG INJ IV PRN ×2 (08:30)
[2016-08-17] MEDS ORDERED: KETOROLAC 30 MG INJ IV PRN (08:30)
[2016-08-17] MEDS ORDERED: MEPERIDINE 25 MG INJ IV PRN (08:30)
[2016-08-17] MEDS ORDERED: FENTAnyl 2MCG/ML-ROPIV 0.2% 100 ML BAG EPI SCH (08:30)
[2016-08-17] MEDS ORDERED: PROCHLORPERAZINE 10 MG INJ IV PRN (08:30)
[2016-08-17] MEDS ORDERED: HYDROmorphONE 1 MG/ML SYG IV PRN ×2 (08:30)
[2016-08-17] MEDS ORDERED: LEVOTHYROXINE 150 MCG TAB PO ONE (09:00)
[2016-08-17] MEDS ORDERED: SYN15 PO (09:00)
[2016-08-17] MEDS ORDERED: PRENAT PO (09:01)
--- NOTE | 2016-08-17 14:22 | HP ---
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 OB Admission Exam Physical Exam Abdomen: WNL Extremities: Normal Cervical Dilatation: 2cm Effacement: 75% Station: -1 Membranes: Intact Heart Rate: 140's Accelerations: Accelerations Present Decelerations: No Decelerations Varibility: Moderate Contractions on Admission: 6-10 Minutes Apart Last 72 hours Lab Results CBC & BMP 08/16/16 19:30 Liver Function Test 08/16/16 19:30 Alanine Aminotransferase (ALT/SGPT) 29 Albumin 4.0 Alkaline Phosphatase 156 H Aspartate Amino Transf (AST/SGOT) 30 Direct Bilirubin 0.00 Total Protein 7.5 OB Assessment/Plan Reason for admission: observation Plan: Induction Induction Method: per Pitocin Protocol JANIYA QUINTEROS M.D. Aug 17, 2016 14:22
--- NOTE | 2016-08-17 14:23 | LDN ---
Date/Time of Note Date/Time of Note DATE: 08/17/16 TIME: 14:22 Delivery Summary Weeks of Gestation 37 Assisted Vaginal Delivery: Vacuum ( bradycardia) Placenta Delivered: Spontaneously, Manually Meconium: none Perineal laceration: 2 Anesthesia type: Epidural Estimated blood loss: 200 Sponge & Needle done & correct: Yes All needle counts correct: Yes Any foreign bodies felt in the: No Problems: Delivery Information Apgars 1 Minute: 9 5 Minute: 9 Suctioning Nose & mouth suctioned at gary: Yes Delee suction performed: Yes Umbilical Cord Umbilical cord with: 3 Vessels Cord Blood was obtained: Yes JANIYA QUINTEROS M.D. Aug 17, 2016 14:23
[2016-08-17 16:25] VITALS: BP 127/69; PULSE 85; RESP 19
[2016-08-17 16:40] VITALS: BP 120/75; PULSE 82; RESP 18
[2016-08-17] MEDS ORDERED: LACTATED RINGER'S 1,000 ML IV* SCH (17:03)
[2016-08-17] MEDS: LACTATED RINGER'S 1,000 ML IV* SCH (17:10)
[2016-08-17] MEDS ORDERED: CEFAZOLIN 1 GM/50 ML (PMX) 50 ML IV ONE (17:30)
[2016-08-17] MEDS ORDERED: SENNA/DOCUSATE NA (8.6MG/50MG) TAB PO PRN ×2 (17:30)
[2016-08-17] MEDS ORDERED: CARBOPROST 250 MCG INJ IM PRN ×2 (17:30)
[2016-08-17] MEDS ORDERED: OXYTOCIN 30 UNITS/LR 500 ML IV PRN ×2 (17:30)
[2016-08-17] MEDS ORDERED: LANOLIN 7 GM TUBE TOP PRN (17:30)
[2016-08-17] MEDS ORDERED: MISOPROSTOL 200 MCG TAB PR PRN ×2 (17:30)
[2016-08-17] MEDS ORDERED: METHYLERGONOVINE 0.2 MG INJ IM PRN ×2 (17:30)
[2016-08-17] MEDS ORDERED: ZOLPIDEM 5 MG TAB PO PRN (17:30)
[2016-08-17] MEDS ORDERED: OXYCODONE/ASPIRIN (4.88/325) TAB PO PRN (17:30)
[2016-08-17] MEDS: IBUPROFEN 600 MG TAB PO SCH (17:51)
[2016-08-17] MEDS ORDERED: IBUPROFEN 600 MG TAB PO SCH (18:00)
[2016-08-17 19:40] VITALS: BP 114/63; PULSE 91; RESP 18
[2016-08-17] MEDS: SENNA/DOCUSATE NA (8.6MG/50MG) TAB PO SCH (21:29)
[2016-08-18] MEDS: LACTATED RINGER'S 1,000 ML IV* SCH ×3 (01:10→17:10)
[2016-08-18] MEDS: LACTATED RINGER'S 1,000 ML IV SCH ×2 (02:45→10:45)
[2016-08-18 04:00] VITALS: BP 116/65; PULSE 86; RESP 17
[2016-08-18] MEDS: IBUPROFEN 600 MG TAB PO SCH ×4 (06:09→18:07)
[2016-08-18 08:24] LABS: ADD SCAN DIFF NO
[2016-08-18 08:34] LABS: BASOPHILS % 0.3 % (0.0-2.0); EOSINOPHILS # 0.1 10^3/ul (0.0-0.5); EOSINOPHILS % 1.5 % (0.0-7.0); HEMATOCRIT 33.2 % (37.0-47.0); HEMOGLOBIN 11.1 g/dl (12.0-16.0); LYMPHOCYTES # 1.1 10^3/ul (0.8-2.9); LYMPHOCYTES % 12.5 % (15.0-51.0); MEAN CORPUSCULAR HEMOGLOBIN 32.3 pg (29.0-33.0); MEAN CORPUSCULAR HGB CONC 33.4 g/dl (32.0-37.0); MEAN CORPUSCULAR VOLUME 96.5 fl (82.0-101.0); MEAN PLATELET VOLUME 10.4 fl (7.4-10.4); MONOCYTE # 0.4 10^3/ul (0.3-0.9); MONOCYTES % 4.4 % (0.0-11.0); NEUTROPHIL # 7.1 10^3/ul (1.6-7.5); NEUTROPHILS % 80.5 % (39.0-77.0); PLATELET COUNT 244 10^3/UL (140-415); RED BLOOD COUNT 3.44 10^6/ul (4.20-5.40); WHITE BLOOD COUNT 8.8 10^3/ul (4.8-10.8)
[2016-08-18 09:15] VITALS: BP 135/84; PULSE 88; RESP 18
[2016-08-18] MEDS: SENNA/DOCUSATE NA (8.6MG/50MG) TAB PO SCH ×2 (09:25→21:10)
[2016-08-18 12:09] VITALS: BP 114/75; PULSE 80; RESP 18
[2016-08-18] MEDS: BENZOCAINE 20% 56 ML SPRAY TOP PRN (15:27)
[2016-08-18] MEDS: WITCH HAZEL/GLYCERIN PAD PR PRN (15:27)
[2016-08-18 15:30] VITALS: BP 117/67; PULSE 78; RESP 18
[2016-08-18] MEDS ORDERED: LEVOTHYROXINE 150 MCG TAB PO ONE (18:00)
[2016-08-18 20:20] VITALS: BP 136/78; PULSE 78; RESP 0
[2016-08-19] MEDS: IBUPROFEN 600 MG TAB PO SCH ×4 (00:04→18:10)
[2016-08-19 04:00] VITALS: BP 128/85; PULSE 72; RESP 17
[2016-08-19] MEDS ORDERED: LEVOTHYROXINE 150 MCG TAB PO SCH (06:00)
[2016-08-19 08:00] VITALS: BP 121/74; PULSE 132; RESP 18
[2016-08-19] MEDS ORDERED: DIPHTH/TET/ACEL PERTUSS (ADULT) 0.5 ML VIAL IM* ONE (09:00)
[2016-08-19] MEDS: SENNA/DOCUSATE NA (8.6MG/50MG) TAB PO SCH (10:27)
--- NOTE | 2016-08-19 10:44 | QN ---
Documentation Comment Late entry Note: 08/18/2016 PPD#1 is stable afebrile tolerates diet No VB +BM +voids No sign of depression VS stable Gen NAD Abd soft NT ND genitalia No blood at perinium --->discharge home JANIYA QUINTEROS M.D. Aug 19, 2016 10:44
--- NOTE | 2016-08-19 10:47 | DS ---
Date/Time of Note Date/Time of Note DATE: 08/19/16 TIME: 10:44 Discharge Summary Admission/Discharge Info Admit Date/Time Aug 16, 2016 at 18:09 Discharge Date/Time jul Discharge Diagnosis Patient Condition: Stable Procedures Vaginal delivery Hospital Course uneventful Home Meds Reported Medications Multivit/Min/Fol Ac/Iron/Pren* ( S*) 1 Tab Tab, 1 TAB PO DAILY, TAB 08/17/16 Levothyroxine Sodium* (Synthroid*) 150 Mcg Tablet, 150 MCG PO BEFORE BREAKFAST, #30 TAB 08/17/16 Primary Care Provider Care Physician No Primary JANIYA QUINTEROS M.D. Aug 19, 2016 10:47
[2016-08-19 16:00] VITALS: BP 127/80; PULSE 78; RESP 20
[2016-08-19] MEDS: BENZOCAINE 20% 56 ML SPRAY TOP PRN (18:10)
[2016-08-19] MEDS: WITCH HAZEL/GLYCERIN PAD PR PRN (18:10)
== END 2016-08-19 19:02 | disposition home or self-care (01) | DRG 775 ==
LOC: L-D 18:09 → PP1 08-17 16:37 → EDSTATUS 09-03 18:08
PROVIDERS: ADMIT Obstetrics & Gynecology; ATTEND Obstetrics & Gynecology
PROC: 10D07Z6 Extraction of Products of Conception, Vacuum, Via Natural or Artificial Opening (ICD-10-PCS; principal; 2016-08-17)
DX: O14.94 Unspecified pre-eclampsia, complicating childbirth (principal); O36.5930 Maternal care for other known or suspected poor fetal growth, third trimester, not applicable or unspecified; Z3A.37 37 weeks gestation of pregnancy; Z37.0 Single live birth; O76 Abnormality in fetal heart rate and rhythm complicating labor and delivery; O99.284 Endocrine, nutritional and metabolic diseases complicating childbirth; E03.9 Hypothyroidism, unspecified
CPT/HCPCS: 62319; 76815; 80053; 84560; 85025; 85610; 85730; 86592; 86900; 86901; 90715; 99464; J0290; J0690; J2590; J3010; J7120